=== PATIENT | female | born 1960 | race Caucasian/White ===

== ENCOUNTER → 2017-11-19 07:33 | Outpatient (CLI) | payer BC, SELFPAY ==
--- NOTE | 2017-11-19 | DI.MG.S_ITS ---
BILATERAL DIGITAL SCREENING MAMMOGRAM 3D/2D WITH CAD: 11/19/2017 CLINICAL: Routine screening. Family history of breast cancer. Comparison is made to exams dated: 10/27/2016 mammogram, 10/25/2015 mammogram, and 09/24/2014 mammogram - [facility]. The tissue of both breasts is heterogeneously dense. This may lower the sensitivity of mammography. Current study was also evaluated with a Computer Aided Detection (CAD) system. No significant masses, calcifications, or other findings are seen in either breast. There has been no significant interval change. IMPRESSION: NEGATIVE There is no mammographic evidence of malignancy. A 1 year screening mammogram is recommended. This exam was interpreted at Station ID: [id number]. NOTE: For mammograms, a report in lay terms will be sent to the patient. Approximately 15% of breast malignancies will not be visualized mammographically. In the management of a palpable breast mass, a negative mammogram must not discourage biopsy of a clinically suspicious lesion. Electronically Signed By: Mayi isaac/silvia:11/19/2017 08:57:49 letter sent: Normal Exam ACR BI-RADS Category 1: Negative 3341F
== END ==
PROVIDERS: Family Provider Family Medicine; PCP Family Medicine
DX: Z12.31 Encounter for screening mammogram for malignant neoplasm of breast (principal); Z80.3 Family history of malignant neoplasm of breast
CPT/HCPCS: 77063; 77067

== ENCOUNTER 2018-07-18 19:18 | Emergency (ER) | payer BC, SELFPAY ==
[2018-07-18 19:30] VITALS: BP 137/76; PULSE 92; PULSE 96; RESP 18; RESP 25; TEMP 36.9; O2SAT 100; O2SAT 99; BMI 23.3
--- NOTE | 2018-07-18 19:35 | ED_ITS ---
HPI - Chest Pain General Chief Complaint: Chest Pain Stated Complaint: Sent by walk-in/ Chest tightness Time Seen by Provider: 07/18/18 19:35 Source: patient Mode of arrival: ambulatory Limitations: no limitations History of Present Illness HPI narrative: Patient is a 57-year-old female here for evaluation of 2 weeks of a cough and chest tightness. She stated that she did not have any chest pain. She states that the cough is sometimes productive. No objective fevers. Has not tried anything for her symptoms prior to arrival. Does not describe any sinus congestion. She states that her cough is worse when she lays flat. She states she does get short of breath however it is only with exertion however she states that she can climb a flight of stairs walk out to the mailbox and walking between rooms in her house without becoming short of breath and having to stop. She was seen at the walk-in clinic prior to arrival here in the emergency department and had an EKG which during the initial report was abnormal she was sent here to the emergency department for evaluation. She states that she has had daily consistent symptoms for the past 2 weeks. Related Data Home Medications Medication Instructions Recorded Confirmed Calcium Carbonate/Vitamin D 1 cap PO TID #0 08/04/11 07/18/18 (#CALCIUM) Fish Oil (#OMEGA 3) 1,000 mg PO #0 08/04/11 07/18/18 Red Yeast Rice (#RED YEAST RICE) 600 mg PO Q DAY #0 08/26/12 07/18/18 Previous Rx's Medication Instructions Recorded azithromycin See Label Instructions .ROUTE 07/18/18 .COMPLEX #6 tab Allergies Allergy/AdvReac Type Severity Reaction Status Date / Time No Known Drug Allergies Allergy Verified 07/18/18 18:00 Review of Systems Constitutional Denies fever(s) and Denies headache(s) ENT Ears, Nose, Mouth, and Throat: Denies vertigo, Denies dizziness and Denies headache(s) Cardiovascular Denies chest pain, Denies rapid heart rate, Denies edema, Denies lightheadedness , Denies palpitations, Reports dyspnea and Reports dyspnea on exertion Respiratory Reports cough, Reports dyspnea, Reports dyspnea on exertion and Denies wheezing Gastrointestinal Gastrointestinal: Denies abdominal pain, Denies nausea and Denies vomiting Genitourinary Denies dysuria Musculoskeletal Denies myalgias and Denies arthralgias Integumentary/Breasts Denies rash Neurologic Denies confusion, Denies vertigo, Denies dizziness and Denies headache(s) Psychiatric Denies confusion Endocrine Denies palpitations Hematologic/Lymphatic Comments: Not on anticoagulation Allergic/Immunologic Denies wheezing PFSH Medical History Hyperlipidemia (Acute) Surgical History Status post colonoscopy Family History Grandfather Diabetes mellitus Heart disease Mother Age: 76 Diabetes mellitus Heart disease Grandmother Age: 73 Heart attack Sister Age: 54 Diabetes mellitus Social History Smoking Status: Current every day smoker Exam Initial Vital Signs Initial Vital Signs: Vital Signs Temperature 98.4 F 07/18/18 19:30 Pulse Rate 96 H 07/18/18 19:30 Respiratory Rate 18 07/18/18 19:30 Blood Pressure 137/76 07/18/18 19:30 Pulse Oximetry 99 07/18/18 19:30 Const General: cooperative, healthy appearing, comfortable, well developed, well groomed and No acute distress Orientation: alert, awake and oriented x3 HENMT Head: normal to inspection and normocephalic Resp Effort & Inspection: normal respiratory effort Auscultation: clear to auscultation bilaterally Cardio Rate: regular rate Rhythm: regular rhythm Pulses: radial pulses present GI Inspection: non-distended Palpation: soft, No firm and No tender Skin Lesions: no lesions Rashes: no rashes Neuro General: alert, awake and oriented x3 Cognition: normal cognition Speech: speech normal Extrem General: normal to inspection and capillary refill normal Psych Appearance: grossly normal and well kempt Course Orders Ordered: ED Orders 07/18/18 19:36 XR chest 1V Stat EKG-12 Lead Stat 07/18/18 19:41 B Type Natriuretic Peptide Stat Complete Blood Count AUTO DIFF Stat Partial Thromboplastin Time Stat Prothrombin Time INR Stat 07/18/18 20:00 Basic Metabolic Panel Stat Troponin I Stat Vital Signs - 8 hr 07/18/18 19:30 07/18/18 20:00 07/18/18 20:30 Temperature 98.4 F Pulse Rate 92 H 93 H 95 H Respiratory Rate 25 H 14 17 Blood Pressure 137/76 Blood Pressure [Left Arm] 137/76 150/110 H 121/82 Pulse Oximetry 100 98 97 07/18/18 20:55 Temperature 97 F L Pulse Rate 96 H Respiratory Rate 16 Blood Pressure 121/82 Blood Pressure [Left Arm] Pulse Oximetry 97 MDM - Chest Pain Medical Records Data Attestation: I reviewed the patient's medical records. Lab Data Attestation: I reviewed the patient's lab results. Result diagrams: 07/18/18 19:41 07/18/18 20:00 Lab Results 07/18/18 07/18/18 07/18/18 Range/Units 19:41 19:41 20:00 WBC 12.1 H (4.5-11.0) X10^3/uL RBC 3.65 L (4.0-5.2) X10^6/uL Hgb 12.1 (12.0-16.0) g/dL Hct 35.7 L (36-46) % MCV 97.8 (80-100) fL MCH 33.2 (26-34) PG MCHC 34.0 (30-36) % RDW 12.6 (11.6-14.8) % Plt Count 394 (150-400) X10^3/uL Neut % (Auto) 56.0 (50-75) % Lymph % (Auto) 35.0 (25-40) % [place] % (Auto) 6.1 (3-14) % Eos % (Auto) 2.0 (2-4) % Baso % (Auto) 0.9 (0-2) % Neut # (Auto) 6800 (9513-4903) /uL Lymph # (Auto) 4200 (7773-4064) /uL [place] # (Auto) 700 (0-900) /uL Eos # (Auto) 200 (0-450) /uL Baso # (Auto) 100 (0-100) /uL PT 11.1 (10.1-12.7) SECONDS INR 1.0 (0.9-1.3) APTT 31 (26.4-36.2) SECONDS Sodium 137 (137-145) mmol/L Potassium 3.5 (3.4-5.1) mmol/L Chloride 98 (98-107) mmol/L Carbon Dioxide 29 (22-32) mmol/L BUN 11 (7-17) mg/dL Creatinine 0.90 (0.52-1.04) mg/dL Estimated GFR > 60.0 (>60) mL/min BUN/Creatinine Ratio 12.2 (6-22) Glucose 109 H (70-100) mg/dL Calcium 9.9 (8.4-10.2) mg/dL Troponin I < 0.012 (0.01-0.034) ng/mL B-Natriuretic Peptide < 100 (<100) Urine Dip Bedside Urine Glucose Negative Bedside Urine Bilirubin - Negative Bedside Urine Ketone - Negative Urine Specific [place] 1.010 Bedside Urine Occult Blood - Negative Bedside Urine pH 6.5 Bedside Urine Protein - Negative Bedside Urine Urobilinogen - Negative Bedside Urine Nitrite - Negative Bedside Urine Leukocytes - Negative Esterase Imaging Data Chest x-ray: Radiologist's impression: PROCEDURE: XR CHEST 1V INDICATIONS: chest tightness TECHNIQUE: One view of the chest was acquired. COMPARISON: [facility], , CHEST 2 VIEW, 01/17/2015, 14:11. FINDINGS: Surgical changes and devices: None. Lungs and pleura: No pleural effusions or pneumothorax. Lungs are clear. Mediastinum: Mediastinal contours appear normal. Heart size is normal. Bones and chest wall: No suspicious bony lesions. Overlying soft tissues appear unremarkable. IMPRESSION: No acute pulmonary process. Dictated by: Danelle Espino M.D. on 07/18/2018 at 19:59 ECG Data Attestation: I personally reviewed and interpreted this ECG as follows: Prior ECG tracings: available for review Interpretation: Sinus rhythm Ventricular rate of 91 Normal axis Normal QRS Normal QTC [address] depression V3 V4 V5 V6 Unchanged from comparison EKG performed on the same date at the walk-in clinic [facility] Narrative Medical decision making narrative: Chest x-ray is unremarkable. Does have ST depressions laterally on the EKG but no reciprocal changes. She states that she is not having any chest pain. She states that she only has shortness of breath when she exerts herself and also when she lays flat. She was also complaining of a cough. She has had consistent symptoms for the past 2 weeks. Her troponin was negative. She also has a leukocytosis. She has not tried anything for her symptoms. Her lungs are clear. She is not in respiratory distress. The fact she has been having symptoms for the past 2 weeks with a leukocytosis there is some concern for atypical pneumonia especially in the setting of the cough. Will hold on further workup for now. Will send home with a prescription for antibiotics to treat the atypical pneumonia. She was given return precautions. She expressed understanding and agreement with plan. Discharge Plan Departure Patient Disposition: Home Clinical Impression: Atypical pneumonia, Cough Discharge Date/Time: 07/18/18 20:56 Interventions: ED Discharge Assessment Last Done: 07/18/18 20:55 Instructions: Cough (Alternative Therapy), Cough, Atypical Pneumonia Activity Restrictions/Additional Instructions: I recommend you take the antibiotics as directed. I also recommend that you purchase a decongestant such as Smitha or Claritin or Zyrtec [id number] and start taking this as directed. I also recommend you contact your primary care doctor tomorrow to schedule a follow-up. Return to the emergency department for any new or worsening symptoms Prescriptions: New azithromycin 250 mg tablet See Label Instructions .ROUTE .COMPLEX Qty: 6 RF: 0 No Action Fish Oil (#OMEGA 3) 1,000 mg PO Qty: 0 RF: 0 Calcium Carbonate/Vitamin D (#CALCIUM) 1 cap PO TID Qty: 0 RF: 0 Red Yeast Rice (#RED YEAST RICE) 600 mg PO Q DAY Qty: 0 RF: 0
[2018-07-18 19:47] LABS: Add Manual Diff / Slide Review NO; Basophils Absolute Auto 100 /uL (0-100); Basophils Percent Auto 0.9 % (0-2); Eosinophils Absolute Auto 200 /uL (0-450); Hematocrit 35.7 % (36-46); Hemoglobin 12.1 g/dL (12.0-16.0); Lymphocytes Absolute Auto 4200 /uL (1100-4500); Mean Corpuscular Hemoglobin 33.2 PG (26-34); Mean Corpuscular Volume 97.8 fL (80-100); Monocytes Absolute Auto 700 /uL (0-900); Monocytes Percent Auto 6.1 % (3-14); Neutrophils Absolute Auto 6800 /uL (1500-7000); Platelet Count 394 X10^3/uL (150-400); Red Blood Cell Count 3.65 X10^6/uL (4.0-5.2); Red Cell Distribution Width 12.6 % (11.6-14.8); White Blood Cell Count 12.1 X10^3/uL (4.5-11.0)
[2018-07-18 19:59] LABS: BUN Creatinine Ratio 12.2 (6-22); Blood Urea Nitrogen 11 mg/dL (7-17); Calcium 9.9 mg/dL (8.4-10.2); Carbon Dioxide 29 mmol/L (22-32); Chloride 98 mmol/L (98-107); Estimated Glomerular Filt Rate > 60.0 mL/min (>60); Glucose 109 mg/dL (70-100); HEMOLYSIS < 15 (0-50); Potassium 3.5 mmol/L (3.4-5.1); Sodium 137 mmol/L (137-145)
[2018-07-18 20:00] VITALS: BP 150/110; PULSE 93; RESP 14; O2SAT 98
[2018-07-18 20:15] LABS: Troponin I < 0.012 ng/mL (0.01-0.034)
[2018-07-18 20:19] LABS: Prothrombin Time 11.1 SECONDS (10.1-12.7)
[2018-07-18 20:21] LABS: PTT Partial Thromboplastin Tim 31 SECONDS (26.4-36.2)
[2018-07-18 20:30] VITALS: BP 121/82; PULSE 95; RESP 17; O2SAT 97
[2018-07-18 20:33] LABS: B Type Natriuretic Peptide < 100 (<100)
[2018-07-18 20:55] VITALS: BP 121/82; PULSE 96; RESP 16; TEMP 36.1; O2SAT 97
== END 2018-07-18 20:56 | disposition home or self-care (01) ==
PROVIDERS: Emergency Provider Emergency Medicine; Family Provider Family Medicine; PCP Family Medicine
DX: R07.9 Chest pain, unspecified (principal); R21 Rash and other nonspecific skin eruption
CPT/HCPCS: 36591; 71045; 80048; 81003; 83880; 84484; 85025; 85610; 85730; 93005; 93010; 99283; 99285

== ENCOUNTER → 2018-10-13 07:12 | Outpatient (CLI) | payer BC, SELFPAY ==
[2018-10-13 07:46] LABS: Add Manual Diff / Slide Review NO; Basophils Absolute Auto 100 /uL (0-100); Basophils Percent Auto 0.8 % (0-2); Eosinophils Absolute Auto 300 /uL (0-450); Eosinophils Percent Auto 3.1 % (2-4); Hematocrit 36.7 % (36-46); Hemoglobin 12.9 g/dL (12.0-16.0); Lymphocytes Absolute Auto 3100 /uL (1100-4500); Mean Corpuscular HGB Conc 35.1 % (30-36); Mean Corpuscular Hemoglobin 33.5 PG (26-34); Mean Corpuscular Volume 95.4 fL (80-100); Monocytes Absolute Auto 600 /uL (0-900); Monocytes Percent Auto 5.7 % (3-14); Neutrophils Absolute Auto 6800 /uL (1500-7000); Neutrophils Percent Auto 62.4 % (50-75); Platelet Count 331 X10^3/uL (150-400); Red Blood Cell Count 3.85 X10^6/uL (4.0-5.2); Red Cell Distribution Width 12.4 % (11.6-14.8); White Blood Cell Count 10.9 X10^3/uL (4.5-11.0)
[2018-10-13 08:22] LABS: Alanine Aminotransferase 35 IU/L (9-52); Albumin 4.7 g/dL (3.5-5.0); Albumin Globulin Ratio 1.7 (1.0-2.8); Alkaline Phosphatase 54 U/L (38-126); Aspartate Aminotransferase 31 IU/L (14-36); Bilirubin Total 0.9 mg/dL (0.2-1.3); Blood Urea Nitrogen 10 mg/dL (7-17); Calcium 10.1 mg/dL (8.4-10.2); Carbon Dioxide 26 mmol/L (22-32); Chloride 101 mmol/L (98-107); Cholesterol 237 mg/dL (140-199); Estimated Glomerular Filt Rate 56.9 mL/min (>60); Globulin 2.7 g/dL (1.7-4.1); Glucose 105 mg/dL (70-100); HDL Cholesterol 73 mg/dL (40-60); HEMOLYSIS < 15 (0-50); LDL Cholesterol Calculated 110 mg/dL (<100); Potassium 4.5 mmol/L (3.4-5.1); Sodium 136 mmol/L (137-145); Total Protein 7.4 g/dL (6.3-8.2); Triglycerides 270 mg/dL (35-150)
[2018-10-13 08:52] LABS: TSH w/ Reflex to FT4 1.91 uIU/mL (0.47-4.68)
== END ==
PROVIDERS: PCP Family Medicine; Visit Provider Family Medicine
DX: E78.5 Hyperlipidemia, unspecified (principal); R79.89 Other specified abnormal findings of blood chemistry; Z00.00 Encounter for general adult medical examination without abnormal findings
CPT/HCPCS: 36415; 80053; 80061; 84443; 85025

== ENCOUNTER → 2018-12-08 08:09 | Outpatient (CLI) | payer BC, SELFPAY ==
--- NOTE | 2018-12-08 | DI.MG.S_ITS ---
BILATERAL DIGITAL SCREENING MAMMOGRAM 3D/2D WITH CAD: 12/08/2018 CLINICAL: Routine screening. Family history of breast cancer. Comparison is made to exams dated: 11/19/2017 mammogram, 10/27/2016 mammogram, and 10/25/2015 mammogram - [facility]. The tissue of both breasts is heterogeneously dense. This may lower the sensitivity of mammography. Current study was also evaluated with a Computer Aided Detection (CAD) system. No significant masses, calcifications, or other findings are seen in either breast. There has been no significant interval change. IMPRESSION: NEGATIVE There is no mammographic evidence of malignancy. A 1 year screening mammogram is recommended. This exam was interpreted at Station ID: [id number]. NOTE: For mammograms, a report in lay terms will be sent to the patient. Approximately 15% of breast malignancies will not be visualized mammographically. In the management of a palpable breast mass, a negative mammogram must not discourage biopsy of a clinically suspicious lesion. Electronically Signed By: Shabbir cage/silvia:12/08/2018 13:12:44 letter sent: Normal Exam ACR BI-RADS Category 1: Negative 3341F
== END ==
PROVIDERS: PCP Family Medicine; Visit Provider Family Medicine
DX: Z12.31 Encounter for screening mammogram for malignant neoplasm of breast (principal); Z80.3 Family history of malignant neoplasm of breast
CPT/HCPCS: 77063; 77067

== ENCOUNTER → 2020-02-08 08:03 | Outpatient (CLI) | payer BC, SELFPAY ==
--- NOTE | 2020-02-08 | DI.MG.S_ITS ---
BILATERAL DIGITAL SCREENING MAMMOGRAM 3D/2D WITH CAD: 02/08/2020 CLINICAL: Routine screening. Family history of breast cancer. Comparison is made to exams dated: 12/08/2018 mammogram, 11/19/2017 mammogram, and 10/27/2016 mammogram - [facility]. The tissue of both breasts is heterogeneously dense. This may lower the sensitivity of mammography. Current study was also evaluated with a Computer Aided Detection (CAD) system. No significant masses, calcifications, or other findings are seen in either breast. There has been no significant interval change. IMPRESSION: NEGATIVE There is no mammographic evidence of malignancy. A 1 year screening mammogram is recommended. This exam was interpreted at Station ID: [id number]. NOTE: For mammograms, a report in lay terms will be sent to the patient. Approximately 15% of breast malignancies will not be visualized mammographically. In the management of a palpable breast mass, a negative mammogram must not discourage biopsy of a clinically suspicious lesion. Electronically Signed By: uJlián white/silvia:02/08/2020 08:44:13 letter sent: Normal Exam ACR BI-RADS Category 1: Negative 3341F
== END ==
PROVIDERS: PCP Family Medicine; Referring Provider Family Medicine; Visit Provider Family Medicine
DX: Z12.31 Encounter for screening mammogram for malignant neoplasm of breast (principal); Z80.3 Family history of malignant neoplasm of breast
CPT/HCPCS: 77063; 77067

== ENCOUNTER → 2020-02-09 13:57 | Outpatient (CLI) | payer BC, SELFPAY | PROVIDERS: PCP Family Medicine | DX: Z13.820 Encounter for screening for osteoporosis (principal); Z78.0 Asymptomatic menopausal state; F17.200 Nicotine dependence, unspecified, uncomplicated; Z82.62 Family history of osteoporosis | CPT/HCPCS: 77080 ==

== ENCOUNTER → 2020-04-23 09:02 | Outpatient (CLI) | payer BC, SELFPAY ==
[2020-04-23 10:19] LABS: Add Manual Diff / Slide Review NO; Basophils Absolute Auto 100 /uL (0-100); Basophils Percent Auto 0.9 % (0-2); Eosinophils Absolute Auto 200 /uL (0-450); Eosinophils Percent Auto 2.3 % (2-4); Hemoglobin 12.7 g/dL (12.0-16.0); Lymphocytes Absolute Auto 2800 /uL (1100-4500); Lymphocytes Percent Auto 30.2 % (25-40); Mean Corpuscular HGB Conc 34.3 % (30-36); Mean Corpuscular Volume 99.1 fL (80-100); Monocytes Absolute Auto 500 /uL (0-900); Monocytes Percent Auto 5.5 % (3-14); Neutrophils Absolute Auto 5800 /uL (1500-7000); Neutrophils Percent Auto 61.1 % (50-75); Platelet Count 360 X10^3/uL (150-400); Red Blood Cell Count 3.73 X10^6/uL (4.0-5.2); Red Cell Distribution Width 12.7 % (11.6-14.8); White Blood Cell Count 9.4 X10^3/uL (4.5-11.0)
[2020-04-23 10:36] LABS: Alanine Aminotransferase 25 IU/L (<35); Albumin 4.5 g/dL (3.5-5.0); Albumin Globulin Ratio 1.7 (1.0-2.8); Alkaline Phosphatase 60 U/L (38-126); Aspartate Aminotransferase 31 IU/L (14-36); Bilirubin Total 0.6 mg/dL (0.2-1.3); Blood Urea Nitrogen 6 mg/dL (7-17); Calcium 9.9 mg/dL (8.4-10.2); Carbon Dioxide 28 mmol/L (22-32); Chloride 101 mmol/L (98-107); Cholesterol 235 mg/dL (140-199); Estimated Glomerular Filt Rate > 60.0 mL/min (>60); Globulin 2.7 g/dL (1.7-4.1); Glucose 97 mg/dL (80-110); HDL Cholesterol 76 mg/dL (40-60); HEMOLYSIS < 15 (0-50); LDL Cholesterol Calculated 115 mg/dL (<100); Potassium 4.2 mmol/L (3.4-5.1); Sodium 134 mmol/L (137-145); Total Protein 7.2 g/dL (6.3-8.2); Triglycerides 220 mg/dL (35-150)
[2020-04-23 11:00] LABS: TSH w/ Reflex to FT4 1.31 uIU/mL (0.47-4.68)
== END ==
PROVIDERS: PCP Family Medicine; Referring Provider Family Medicine; Visit Provider Family Medicine
DX: E78.5 Hyperlipidemia, unspecified (principal); Z13.1 Encounter for screening for diabetes mellitus; Z13.6 Encounter for screening for cardiovascular disorders
CPT/HCPCS: 36415; 80053; 80061; 84443; 85025

== ENCOUNTER → 2020-04-26 07:14 | Outpatient (CLI) | payer BC, SELFPAY ==
[2020-04-26 08:53] LABS: Erythrocyte Sedimentation Rate 9 MM/HR (0-20)
[2020-04-26 09:15] LABS: C-Reactive Protein Quant < 0.5 mg/dL (<1.0)
[2020-04-27 20:41] LABS: Deamidated Gliadin Ab IgA 3 units (0-19); Deamidated Gliadin Ab IgG 2 units (0-19); Immunoglobulin A,Qn 186 mg/dL (87-352); t-Transglutaminase IgA <2 U/mL (0-3)
== END ==
PROVIDERS: PCP Family Medicine; Referring Provider Family Medicine; Visit Provider Family Medicine
DX: K52.9 Noninfective gastroenteritis and colitis, unspecified (principal)
CPT/HCPCS: 36415; 82784; 83516; 85651; 86140

== ENCOUNTER → 2021-02-26 08:05 | Outpatient (CLI) | payer BC, SELFPAY ==
--- NOTE | 2021-02-26 | DI.MG.S_ITS ---
BILATERAL DIGITAL SCREENING MAMMOGRAM 3D/2D WITH CAD: 02/26/2021 CLINICAL: Routine screening. Family history of breast cancer. Comparison is made to exams dated: 02/08/2020 mammogram, 12/08/2018 mammogram, and 11/19/2017 mammogram - [facility]. The tissue of both breasts is heterogeneously dense. This may lower the sensitivity of mammography. Current study was also evaluated with a Computer Aided Detection (CAD) system. No significant masses, calcifications, or other findings are seen in either breast. There has been no significant interval change. IMPRESSION: NEGATIVE There is no mammographic evidence of malignancy. A 1 year screening mammogram is recommended. This exam was interpreted at Station ID: [id number]. NOTE: For mammograms, a report in lay terms will be sent to the patient. Approximately 15% of breast malignancies will not be visualized mammographically. In the management of a palpable breast mass, a negative mammogram must not discourage biopsy of a clinically suspicious lesion. Electronically Signed By: Emeka Villarreal M.D., jr/silvia:02/26/2021 10:21:20 letter sent: Normal Exam ACR BI-RADS Category 1: Negative 3341F
== END ==
PROVIDERS: PCP Family Medicine; Referring Provider Family Medicine; Visit Provider Family Medicine
DX: Z12.31 Encounter for screening mammogram for malignant neoplasm of breast (principal); Z85.3 Personal history of malignant neoplasm of breast
CPT/HCPCS: 77063; 77067

== ENCOUNTER → 2022-03-02 07:18 | Outpatient (CLI) | payer BC, SELFPAY ==
--- NOTE | 2022-03-02 | DI.MG.S_ITS ---
BILATERAL DIGITAL SCREENING MAMMOGRAM 3D/2D WITH CAD: 03/02/2022 CLINICAL: Routine screening. Family history of breast cancer. Comparison is made to exams dated: 02/26/2021 mammogram, 02/08/2020 mammogram, 12/08/2018 mammogram, and 11/19/2017 mammogram - [facility]. Both breasts are heterogeneously dense, which may obscure small masses (category c / 51-75% glandular tissue). Current study was also evaluated with a Computer Aided Detection (CAD) system. No significant masses, calcifications, or other findings are seen in either breast. There has been no significant interval change. IMPRESSION: NEGATIVE There is no mammographic evidence of malignancy. A 1 year screening mammogram is recommended. Based on Tyrer-Cuzick model (a risk assessment model), the patient's lifetime risk is 21.6% and her 10 year risk is 9.7%. If a patient has an elevated risk, a more comprehensive evaluation should be considered and/or a referral to a genetic counselor. The [place] [employer], [employer], and NCCN Guidelines advise the consideration of Breast MRI as an adjunct to screening mammography in patients whose Lifetime risk to develop breast cancer is 20% or higher. This exam was interpreted at Station ID: [id number]. NOTE: For mammograms, a report in lay terms will be sent to the patient. Approximately 15% of breast malignancies will not be visualized mammographically. In the management of a palpable breast mass, a negative mammogram must not discourage biopsy of a clinically suspicious lesion. Electronically Signed By: Bong ornelas/silvia:03/02/2022 08:00:34 letter sent: Normal Exam ACR BI-RADS Category 1: Negative 3341F
== END ==
PROVIDERS: PCP Family Medicine; Referring Provider Family Medicine; Visit Provider Family Medicine
DX: Z12.31 Encounter for screening mammogram for malignant neoplasm of breast (principal); Z80.3 Family history of malignant neoplasm of breast
CPT/HCPCS: 77063; 77067

== ENCOUNTER → 2022-03-03 10:10 | Outpatient (CLI) | payer BC, SELFPAY ==
[2022-03-03 11:41] LABS: Add Manual Diff / Slide Review NO; Basophils Absolute Auto 100 /uL (0-100); Eosinophils Absolute Auto 200 /uL (0-450); Eosinophils Percent Auto 2.2 % (2-4); Hematocrit 34.3 % (36-46); Hemoglobin 11.8 g/dL (12.0-16.0); Lymphocytes Absolute Auto 2700 /uL (1100-4500); Lymphocytes Percent Auto 33.9 % (25-40); Mean Corpuscular HGB Conc 34.5 % (30-36); Mean Corpuscular Hemoglobin 33.5 PG (26-34); Mean Corpuscular Volume 97.1 fL (80-100); Monocytes Absolute Auto 500 /uL (0-900); Neutrophils Absolute Auto 4500 /uL (1500-7000); Neutrophils Percent Auto 56.9 % (50-75); Platelet Count 360 X10^3/uL (150-400); Red Blood Cell Count 3.53 X10^6/uL (4.0-5.2); Red Cell Distribution Width 13.3 % (11.6-14.8); White Blood Cell Count 7.8 X10^3/uL (4.5-11.0)
[2022-03-03 12:17] LABS: Alanine Aminotransferase 19 IU/L (<35); Albumin 4.1 g/dL (3.5-5.0); Albumin Globulin Ratio 1.5 (1.0-2.8); Alkaline Phosphatase 53 U/L (38-126); Aspartate Aminotransferase 24 IU/L (14-36); BUN Creatinine Ratio 7.1 (6-22); Bilirubin Total 0.5 mg/dL (0.2-1.3); Blood Urea Nitrogen 6 mg/dL (7-17); Calcium 9.5 mg/dL (8.4-10.2); Carbon Dioxide 30 mmol/L (22-32); Chloride 103 mmol/L (98-107); Cholesterol 226 mg/dL (140-199); Estimated Glomerular Filt Rate > 60 mL/min (>60); Globulin 2.7 g/dL (1.7-4.1); Glucose 95 mg/dL (80-110); HDL Cholesterol 68 mg/dL (40-60); HEMOLYSIS < 15 (0-50); LDL Cholesterol Calculated 126 mg/dL (<100); Potassium 4.1 mmol/L (3.4-5.1); Sodium 137 mmol/L (137-145); Total Protein 6.8 g/dL (6.3-8.2); Triglycerides 160 mg/dL (35-150)
[2022-03-03 12:46] LABS: TSH w/ Reflex to FT4 1.05 uIU/mL (0.47-4.68)
== END ==
PROVIDERS: PCP Family Medicine; Referring Provider Physician Assistant; Visit Provider Physician Assistant
DX: E78.5 Hyperlipidemia, unspecified (principal); R06.09 Other forms of dyspnea
CPT/HCPCS: 36415; 80053; 80061; 84443; 85025

== ENCOUNTER → 2022-06-04 07:04 | Outpatient (CLI) | payer BC, SELFPAY ==
[2022-06-04 07:59] LABS: Add Manual Diff / Slide Review NO; Basophils Absolute Auto 100 /uL (0-100); Basophils Percent Auto 0.9 % (0-2); Eosinophils Absolute Auto 300 /uL (0-450); Eosinophils Percent Auto 3.7 % (2-4); Hematocrit 39.9 % (36-46); Hemoglobin 13.2 g/dL (12.0-16.0); Lymphocytes Absolute Auto 3600 /uL (1100-4500); Lymphocytes Percent Auto 41.4 % (25-40); Mean Corpuscular HGB Conc 33.2 % (30-36); Mean Corpuscular Hemoglobin 32.6 PG (26-34); Mean Corpuscular Volume 98.3 fL (80-100); Monocytes Absolute Auto 500 /uL (0-900); Monocytes Percent Auto 5.5 % (3-14); Neutrophils Absolute Auto 4200 /uL (1500-7000); Neutrophils Percent Auto 48.5 % (50-75); Platelet Count 377 X10^3/uL (150-400); Red Blood Cell Count 4.06 X10^6/uL (4.0-5.2); Red Cell Distribution Width 12.8 % (11.6-14.8); White Blood Cell Count 8.6 X10^3/uL (4.5-11.0)
== END ==
PROVIDERS: PCP Family Medicine; Referring Provider Family Medicine; Visit Provider Family Medicine
DX: D64.9 Anemia, unspecified (principal)
CPT/HCPCS: 36415; 85025